=== PATIENT | male | born 1970 | race Caucasian/White ===

== ENCOUNTER 2024-11-16 01:05 | Emergency (ER) | payer MEDICAID, OTHER ==
[~2024-11-16] VITALS: Ht 182.9 cm; Wt 108.9 kg
== END 2024-11-16 03:34 | disposition left against medical advice (07) ==
LOC: ER 01:14
DX: M79.604 Pain in right leg (principal); Z53.21 Procedure and treatment not carried out due to patient leaving prior to being seen by health care provider
CPT/HCPCS: A4606; A4663

== ENCOUNTER 2024-11-21 17:52 | Emergency (ER) | payer MEDICAID, OTHER ==
[~2024-11-21] VITALS: Ht 182.9 cm; Wt 88.5 kg
[2024-11-21 18:01] VITALS: O2SAT 99
== END 2024-11-21 19:45 | disposition left against medical advice (07) ==
LOC: ER 17:52
DX: M79.604 Pain in right leg (principal); Z53.21 Procedure and treatment not carried out due to patient leaving prior to being seen by health care provider; F17.200 Nicotine dependence, unspecified, uncomplicated; Z88.7 Allergy status to serum and vaccine
CPT/HCPCS: A4606; A4663

== ENCOUNTER 2024-12-03 04:54 | Emergency (ER) | payer MEDICAID ==
[~2024-12-03] VITALS: Ht 182.9 cm; Wt 86.2 kg
[2024-12-03 04:57] VITALS: O2SAT 100
[2024-12-03] MEDS ORDERED: HYDROCODONE/APAP 10-325 MG TABLET ONE (05:19)
[2024-12-03] MEDS: HYDROCODONE/APAP 10-325 MG TABLET PO ONE (05:20)
== END 2024-12-03 05:34 | disposition home or self-care (01) ==
LOC: ER 04:58
DX: M25.571 Pain in right ankle and joints of right foot (principal); S99.811D Other specified injuries of right ankle, subsequent encounter; F17.200 Nicotine dependence, unspecified, uncomplicated; Z48.02 Encounter for removal of sutures; Z88.7 Allergy status to serum and vaccine; X58.XXXD Exposure to other specified factors, subsequent encounter
CPT/HCPCS: 73610; A4606; A4663